=== PATIENT | female | born 1995 | race Caucasian/White ===

== ENCOUNTER 2024-08-03 02:50 | Emergency (ER) | payer OTHER, SELFPAY ==
[2024-08-03 03:03] VITALS: BP 123/86; PULSE 85; RESP 18; TEMP 36.6; O2SAT 97
--- NOTE | 2024-08-03 03:27 | ED.ALCOHOL ---
HPI - Alcohol General Chief Complaint: Alcohol Stated Complaint: severe alcohol poisoning Time Seen by Provider: 08/03/24 03:05 History of Present Illness HPI narrative: Patient states that she had 8 alcoholic drinks earlier tonight for a more shots and since then she feels like she may have alcohol poisoning with nausea vomiting. Related Data Allergies Allergy/AdvReac Type Severity Reaction Status Date / Time No Known Allergies Allergy Verified 08/03/24 03:06 Review of Systems Review of Systems: All systems reviewed & are unremarkable except as noted in HPI and below Exam Narrative: EXAMINATION OF ORGAN SYSTEMS/BODY AREAS: Constitutional: Vital signs per nursing GENERAL:[No acute distress, non-toxic appearing.] HEAD: Normal with no signs of head trauma. EYES: EOMI, conjunctiva normal ENT: Hearing grossly intact LUNGS: Nonlabored breathing. HEART: [Regular rate and rhythm] ABD: [Soft], [nontender to palpation] EXT: Normal range of motion SKIN: [No rashes or lesions.] NEURO: [Alert and oriented x 3. No gross focal sensory or strength deficits.] Slight shaking everywhere PSYCH: Normal affect Course Vital Signs Vital signs: Vital Signs Temperature 97.9 F 08/03/24 03:03 Pulse Rate 85 08/03/24 03:03 Respiratory Rate 18 08/03/24 03:03 Blood Pressure 123/86 08/03/24 03:03 Pulse Oximetry 97 08/03/24 03:03 Oxygen Delivery Room Air 08/03/24 03:03 Temperature 98.7 F 08/03/24 04:48 Pulse Rate 79 08/03/24 04:48 Respiratory Rate 19 08/03/24 04:48 Blood Pressure 123/75 08/03/24 04:48 Pulse Oximetry 100 08/03/24 04:48 Oxygen Delivery Room Air 08/03/24 03:03 MDM - Alcohol MDM Narrative Medical decision making narrative: Patient presents stating that she thinks he drank too much alcohol, she is nauseous and had already tried taking Zofran at home without much improvement. For she is well-appearing here, abdomen soft nontender, does not appear clinically intoxicated the she is shivering here, labs within acceptable limits including barely elevated alcohol level. She feels better after getting Reglan and fluids and is agreeable to outpatient management with return precautions. She already has Zofran at home. I do feel she is stable for discharge with follow-up to PCP Lab Data 08/03/24 03:29 08/03/24 03:28 Labs: Lab Results 08/03/24 08/03/24 Range/Units 03:28 03:29 WBC 5.8 (4.5-10.0) K/mm3 RBC 4.96 (4.2-5.4) M/mm3 Hgb 14.8 (12.0-15.0) g/dL Hct 42.3 (37.0-47.0) % MCV 85.3 (80-100) fl MCH 29.8 (26-34) pg MCHC 35.0 (32-36) g/dl RDW 12.3 (11.5-14.5) % Plt Count 190 (150-375) k/mm3 MPV 9.7 (7.4-10.4) fl Immature Gran % (Auto) 0.3 (0-0.5) % Neut % (Auto) 70.2 (45.5-73.1) % Lymph % (Auto) 24.3 (18.3-44.2) % [place] % (Auto) 4.7 (2.6-8.5) % Eos % (Auto) 0.3 (0-4.4) % Baso % (Auto) 0.2 (0.2-1.2) % Lymph # (Auto) 1.40 (0.9-3.2) K/mm3 [place] # (Auto) 0.3 (0.1-0.6) K/mm3 Eos # (Auto) 0.0 (0-0.3) K/mm3 Baso # (Auto) 0.0 (0.0-0.1) K/mm3 Abs Immat Gran (auto) 0.02 (0.00-0.031) K/mm3 Absolute Neuts (auto) 4.0 (1.3-6.7) K/mm3 Absolute Nucleated RBC 0.000 (0.0-0.012) K/mm3 Nucleated RBC % 0.0 (0.0-0.2) % Sodium 145 (137-145) mmol/L Potassium 3.8 (3.4-5.0) mmol/L Chloride 109 H (98-107) mmol/L Carbon Dioxide 21 L (22-30) mmol/L Anion Gap 15 H (4-12) mmol/L BUN 10 (7-17) mg/dL Creatinine 0.60 L (0.7-1.0) mg/dL Estim Creat Clear Calc 120 ml/min Estimated GFR > 60 (59 - ) Glucose 123 H (65-110) mg/dL Calcium 9.4 (8.4-10.2) mg/dL Total Bilirubin 0.2 (0.2-1.3) mg/dL AST 25 (14-36) U/L ALT 17 (6-35) U/L Alkaline Phosphatase 39 (38-126) U/L Total Protein 8.0 (6.3-8.2) g/dL Albumin 4.6 (3.5-5.1) g/dL Ethyl Alcohol 84 (<10) mg/dL Discharge Plan Discharge Clinical Impression:
[2024-08-03 03:34] LABS: Basophils Percent Auto 0.2 % (0.2-1.2); Eosinophils Percent Auto 0.3 % (0-4.4); Hematocrit 42.3 % (37.0-47.0); Hemoglobin 14.8 g/dL (12.0-15.0); Immature Granulocyte Absolute 0.02 K/mm3 (0.00-0.031); Immature Granulocyte Percent A 0.3 % (0-0.5); Lymphocytes Percent Auto 24.3 % (18.3-44.2); Mean Corpuscular Hemoglobin 29.8 pg (26-34); Mean Corpuscular Volume 85.3 fl (80-100); Mean Platelet Volume 9.7 fl (7.4-10.4); Monocytes Absolute Auto 0.3 K/mm3 (0.1-0.6); Monocytes Percent Auto 4.7 % (2.6-8.5); Neutrophils Percent Auto 70.2 % (45.5-73.1); Platelet Count Result 190 k/mm3 (150-375); Red Blood Count 4.96 M/mm3 (4.2-5.4); Red Cell Distribution Width 12.3 % (11.5-14.5); White Blood Count 5.8 K/mm3 (4.5-10.0)
[2024-08-03] MEDS: LACTATED RINGERS 1,000 ML 999 ML IV CONT (03:42)
[2024-08-03] MEDS: METOCLOPRAMIDE HCL INJ 10 MG/2 ML VIAL IV PUSH (03:43)
[2024-08-03 03:52] LABS: Ethanol 84 mg/dL (<10)
[2024-08-03 03:52] LABS: Alanine Aminotransferase 17 U/L (6-35); Albumin Level 4.6 g/dL (3.5-5.1); Alkaline Phosphatase 39 U/L (38-126); Anion Gap 15 mmol/L (4-12); Aspartate Amino Transferase 25 U/L (14-36); Bilirubin,Total 0.2 mg/dL (0.2-1.3); Blood Urea Nitrogen 10 mg/dL (7-17); Calcium 9.4 mg/dL (8.4-10.2); Carbon Dioxide 21 mmol/L (22-30); Chloride 109 mmol/L (98-107); Estimated CRCL calculation 120 ml/min; Estimated Glomerular Filt Rate > 60; Glucose 123 mg/dL (65-110); Potassium 3.8 mmol/L (3.4-5.0); Sodium 145 mmol/L (137-145)
[2024-08-03 04:48] VITALS: BP 123/75; PULSE 79; RESP 19; TEMP 37.1; O2SAT 100
== END 2024-08-03 04:50 | disposition home or self-care (01) ==
PROVIDERS: Emergency Provider Emergency Medicine
DX: F10.129 Alcohol abuse with intoxication, unspecified (principal); Y90.4 Blood alcohol level of 80-99 mg/100 ml
CPT/HCPCS: 36415; 80053; 80307; 85025; 96361; 96374; 99284; J2765; J7120